=== PATIENT | female | born 1995 | race Caucasian/White ===

== ENCOUNTER → 2023-12-26 | Outpatient (CLI) | payer BC, SELFPAY ==
[2023-12-26 14:09] LABS: hCG Titer Quant., Serum 22718 mIU/mL (1-3)
[2023-12-30 07:07] LABS: Chlamydia By Nucleic Acid AMP Negative (Negative); Gonococcus By Nucleic Acid AMP Negative (Negative)
== END | disposition home or self-care (01) ==
PROVIDERS: Referring Provider Registered Nurse; Visit Provider Registered Nurse
DX: O20.0 Threatened abortion (principal); Z3A.00 Weeks of gestation of pregnancy not specified
CPT/HCPCS: 36415; 84702; 86850; 86900; 86901; 87086; 87491; 87591

== ENCOUNTER → 2023-12-28 | Outpatient (CLI) | payer BC, SELFPAY ==
--- OUTSIDE RECORDS SUMMARY | 2023-12-28 09:50 | XMS RPT_ITS | CCD ---
Author Name Unknown Address [address] [place] [address] Organization [facility] Care Team Providers Care Charm Filter Operator Helper Name Role Phone BradleyKendrick Unavailable Unavailable None, No PCP Unavailable Unavailable Abdi, Kellee Unavailable Unavailable None, No PCP Unavailable Unavailable Unavailable Unavailable MD FLORIAN RICE Referring Unava ilable MD FLORIAN RICE Attending Unava ilable Medications Completed/Discontinued Medications Medication Drug Class(es) Dates Sig (Normalized) Sig (Original) No Reported Medications (1 source) No Reported Medi cations Refills: 0 Active No Reported Medications (3 sources) No Reported Medi cations Quantity: 0 Refills: 0 Ordered: 04-Jan-2021 DO Active Problems Active Problems Problem Classification Problem Date Documented Da te Episodic/Chronic Menstrual disorders (4 sources) Dysmenorrhea; Translations: [Dysmenorrhea] Chronic Other screening for suspected conditions (not mental disorders or infectious disease) (7 sources) Cancer cervix - screening done; Translations: [Patient encounter status] Episodic Past or Other Problems Problem Classification Problem Date Documented Da te Episodic/Chronic Unclassified (2 sources) Patient encounter status; Translations: [Women's annual routine gynecological examination] Unclassified (1 source) Cancer cervix screening status; Translations: [Screening for cervical cancer] Unclassified (4 sources) Finding of menstrual bleeding; Translations: [Menstruation] Results Test Name Value Interpretation Reference Range Facil ity Vital Signs Date Time Vital Sign Value Performing Clinician Elena zapien 02-19-2023 11:24-0400 Body height 157.48 cm No PCP None [facility] [employer] Phone: 02-19-2023 11:24-0400 Body mass index (BMI) [Ratio] 31.71 kg/m2 No PCP None [facility] [place] Work Phone: 02-19-2023 11:24-0400 Body surface area Derived from formula 1.8 m2 No PCP None [facility] [place] Work Phone: 02-19-2023 11:24-0400 Body weight 78.65 kg No PCP None [facility] [place] Work Phone: 02-19-2023 11:24-0400 Diastolic blood pressure 72 mm[Hg] No PCP None [facility] Work Phone: 02-19-2023 11:24-0400 Systolic blood pressure 118 mm[Hg] No PCP None [facility] Work Phone: 01-31-2022 14:08-0400 Body height 157.48 cm No PCP None [facility] [place] Work Phone: 01-31-2022 14:08-0400 Body mass index (BMI) [Ratio] 30.73 kg/m2 No PCP None [facility] Work Phone: 01-31-2022 14:08-0400 Body surface area Derived from formula 1.77 m2 No PCP None [facility] Work Phone: 01-31-2022 14:08-0400 Body weight 76.2 kg No PCP None [facility] Work Phone: 01-31-2022 14:08-0400 Diastolic blood pressure 82 mm[Hg] No PCP None [facility] Work Phone: 01-31-2022 14:08-0400 Systolic blood pressure 126 mm[Hg] No PCP None [facility] Work Phone: 01-04-2021 16:54-0500 BMI (Body Mass Index) 30.48 kg/m2 Kendrick Huerta [facility] [address] [place] Work Phone: 01-04-2021 16:54-0500 Body Temperature 98.9 [degF] Kendrick Huerta [place] [address] [employer] Work Phone: Encounters Encounter Date Encounter Type Care Provider Facility Start: 02-19-2023 Periodic preventive med est patient 18-39 yrs No PCP None [place] [address] [employer] Work Phone: Start: 02-19-2023 ambulatory MD FLORIAN ENNIS [facility] Facility:[id number] Start: 02-12-2022 Chart Update No PCP None [place] [address] [employer] Phone: Start: 01-31-2022 Periodic preventive med est patient 18-39 yrs No PCP None [place] [address] [employer] Work Phone: Encounter for gynecological examination (general) (routine) without abnormal findings No PCP None [place] [address] [employer] Phone: Procedures Date Procedure Procedure Detail Performing Clinician History of No history of surgery Kendrick Huerta No history of surgery No PCP None Plan of Treatment Date Care Activity Detail Author Start: 02-06-2023 Patient encounter procedure ANNUAL, Provider: Kendrick Huerta, Status: Ton, Time: 8:30 AM [place] [address] [employer] Phone: Payers Date Payer Category Payer Unknown [id number] 1995 Unknown [id number] Unknown [facility] Social History Date Type Detail Facility Assertion Tobacco smoking consumption unknown (finding) [place] [address] [employer] Phone: No alcohol use No alcohol use [place] [address] [employer] Work Phone: Functional Status Date Assessment Result Facility NEGATED: Highlighted row Functional performance Functional status health issues are not documented Disease [place] [address] [employer] Work Phone: Mental Status Date Assessment Result Facility NEGATED: Highlighted row Cognitive function [Interpretation] Cognitive status health issues are not documented Disease [employer] Phone: History of Present illness Narrative Note Date & Type Note Facility History of Present illness Narrative 26-year-old presents for annual exam. Patient safe at home denies abuse. Patient sexually is not sexually active. Patient does physical activity and exercise. Patient is rare self exams no new lumps bumps masses. Patient not think about kids in the near future but may be down the line. 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 Patient uses condoms for contraception. She has no menstrual problems. She is up-to-date on her Pap smears. Patient has no concerns today [employer] Phone: Summary Purpose Family History No Family History Records Found Grandparent Name Dates Details Family history of cardiac ar rest(V17.49, Z82.49) Status:Active Family history of hypertensi on(V17.49, Z82.49) Status:Active Family history of pancreatic cancer(V16.0, Z80.0) Status:Active Mother Name Dates Details No pertinent family history( V49.89, Z78.9) Status:Active Father Name Dates Details No pertinent family history( V49.89, Z78.9) Status:Active Unknown Family Member Name Dates Details No pertinent family history: Mother, Father(V49.89, Z78.9) Status:Active Family history of cardiac ar rest: Grandparent(V17.49, Z82.49) Status:Active Family history of hypertensi on: Grandparent(V17.49, Z82.49) Status:Active Family history of pancreatic cancer: Grandparent(V16.0, Z80.0) Status:Active Unknown Family Member Name Dates Details No pertinent family history: Mother, Father(V49.89, Z78.9) Status:Active Family history of cardiac ar rest: Grandparent(V17.49, Z82.49) Status:Active Family history of hypertensi on: Grandparent(V17.49, Z82.49) Status:Active Family history of pancreatic cancer: Grandparent(V16.0, Z80.0) Status:Active Unknown Family Member Name Dates Details No pertinent family history: Mother, Father(V49.89, Z78.9) Status:Active Family history of cardiac ar rest: Grandparent(V17.49, Z82.49) Status:Active Family history of hypertensi on: Grandparent(V17.49, Z82.49) Status:Active Family history of pancreatic cancer: Grandparent(V16.0, Z80.0) Status:Active Advance Directives No Advanced Directives Records FoundNo Advanced Directives Records FoundNo Advanced Directives Records FoundNo Advanced Directives Records Found Chief Complaint Patient here today for yearly exam. Last pap-03/04/2019 NIL. Patient has no concerns. LMP: 2Patient here today for her annual with no concerns. Last pap 01/31/2022 NIL. Additional Source Comments INFORMATION SOURCE (unrecogn ized section and content) DATE CREATED AUTHOR AUTHOR'S ORGANIZ ATION 03/20/2019 [facility] DATE CREATED AUTHOR AUTHOR'S ORGANIZ ATION 02/20/2023 [facility] DATE CREATED AUTHOR AUTHOR'S ORGANIZ ATION 02/20/2023 [place] FOR RECORDS PERTAINING TO PATIENTS WHO ARE OR HAVE BEEN ENROLLED IN A CHEMICAL DEPENDENCY/SUBSTANCEABUSE PROGRAM, SOME INFORMATION MAY BE OMITTED. This clinical summary was aggregated from multiple sources. Caution should be exercised in using it in the provision of clinical care. This summary normalizes information from multiple sources, and as a consequence, information in this document may materially change the coding, format and clinical context of patient data. In addition, data may be omitted in some cases. CLINICAL DECISIONS SHOULD BE BASED ON THE PRIMARY CLINICAL RECORDS. [facility] [employer] provides no warranty or guarantee of the accuracy or completeness of information in this document.
[2023-12-28 11:17] LABS: hCG Titer Quant., Serum 20303 mIU/mL (1-3)
== END | disposition home or self-care (01) ==
LOC: LAB 09:30
PROVIDERS: Referring Provider Registered Nurse; Visit Provider Registered Nurse
DX: O20.0 Threatened abortion (principal); Z3A.00 Weeks of gestation of pregnancy not specified
CPT/HCPCS: 36415; 84702

== ENCOUNTER → 2024-01-01 | Outpatient (CLI) | payer BC, SELFPAY ==
[2024-01-01 16:51] LABS: hCG Titer Quant., Serum 1760 mIU/mL (1-3)
== END | disposition home or self-care (01) ==
LOC: LAB 15:24
PROVIDERS: Referring Provider Registered Nurse; Visit Provider Registered Nurse
DX: O20.0 Threatened abortion (principal); Z3A.00 Weeks of gestation of pregnancy not specified
CPT/HCPCS: 36415; 84702

== ENCOUNTER → 2024-01-04 | Outpatient (CLI) | payer BC, SELFPAY ==
--- OUTSIDE RECORDS SUMMARY | 2024-01-04 10:16 | XMS RPT_ITS | CCD ---
Author Name Unknown Address [address] [place] [address] Organization [facility] Care Team Providers Care Fulfillment Associate Name Role Phone BradleyKendrick Unavailable Unavailable None, [...] height 157.48 cm No PCP None [facility] [employer] Phone: 02-19-2023 11:24-0400 Body mass index (BMI) [Ratio] 31.71 kg/m2 No PCP None [facility] [place] Work Phone: 02-19-2023 11:24-0400 Body surface area Derived from formula 1.8 m2 No PCP None [facility] Work Phone: 02-19-2023 11:24-0400 Body weight 78.65 kg No PCP None [facility] dennis [facility] Work Phone: 02-19-2023 11:24-0400 Diastolic blood pressure 72 mm[Hg] No PCP None [facility] [employer] Work Phone: 02-19-2023 11:24-0400 Systolic blood pressure 118 mm[Hg] No PCP None [facility] [employer] Work Phone: 01-31-2022 14:08-0400 Body height 157.48 cm No PCP None [facility] [facility] [place] Work Phone: 01-31-2022 14:08-0400 Body mass index (BMI) [Ratio] 30.73 kg/m2 No PCP None [facility] [employer] [place] Work Phone: 01-31-2022 14:08-0400 Body surface area Derived from formula 1.77 m2 No PCP None [employer] Work Phone: 01-31-2022 14:08-0400 Body weight 76.2 kg No PCP None [facility] [employer] Work Phone: 01-31-2022 14:08-0400 Diastolic blood pressure 82 mm[Hg] No PCP None [facility] [employer] Work Phone: 01-31-2022 14:08-0400 Systolic blood pressure 126 mm[Hg] No PCP None [facility] [employer] [place] Work Phone: 01-04-2021 16:54-0500 BMI (Body Mass Index) 30.48 kg/m2 Kendrick Huerta [facility] [place] [address] [place] Work Phone: 01-04-2021 16:54-0500 Body Temperature 98.9 [degF] Kendrick Huerta [place] [address] [employer] Work Phone: Encounters Encounter Date Encounter Type Care Provider Facility Start: 02-19-2023 Periodic preventive med est patient 18-39 yrs No PCP None [place] [address] [employer] Work Phone: Start: 02-19-2023 ambulatory MD FLORIAN ENNIS [facility] Facility:[id number] Start: 02-12-2022 Chart Update No PCP None [place] [address] Phone: Start: 01-31-2022 Periodic preventive med est patient 18-39 yrs No PCP None [place] [address] [employer] Work Phone: Encounter for gynecological examination (general) (routine) without abnormal findings No PCP None [place] [address] Phone: Procedures Date Procedure Procedure Detail Performing Clinician History of No history of surgery Kendrick Huerta No history of surgery No PCP None Plan of Treatment Date Care Activity Detail Author Start: 02-06-2023 Patient encounter procedure ANNUAL, Provider: Kendrick Huerta, Status: Ton, Time: 8:30 AM [place] [address] Phone: Payers Date Payer Category Payer Unknown [id number] 1995 Unknown [id number] Unknown [facility] Social History Date Type Detail Facility Assertion Tobacco smoking consumption unknown (finding) [place] [address] Phone: No alcohol use No alcohol use [place] [address] [employer] Work Phone: Functional Status Date Assessment Result Facility NEGATED: Highlighted row Functional performance Functional status health issues are not documented Disease [place] [address] [employer] Work Phone: Mental Status Date Assessment Result Facility NEGATED: Highlighted row Cognitive function [Interpretation] Cognitive status health issues are not documented Disease [employer] Phone: History of Present illness Narrative Note [...] line. 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 Patient uses condoms for contraception. She has no menstrual problems. She is up-to-date on her Pap smears. Patient has no concerns today [employer] Phone: Summary Purpose Family History No Family [...] DATE CREATED AUTHOR AUTHOR'S ORGANIZ ATION 03/20/2019 [facility] DATE CREATED AUTHOR AUTHOR'S ORGANIZ ATION 02/20/2023 [facility] DATE CREATED AUTHOR AUTHOR'S ORGANIZ ATION 02/20/2023 [place] FOR RECORDS PERTAINING TO PATIENTS WHO ARE [...] BE BASED ON THE PRIMARY CLINICAL RECORDS. [facility] [employer] provides no warranty or guarantee of the accuracy or completeness of information in this document.
[2024-01-04 11:22] LABS: hCG Titer Quant., Serum 362 mIU/mL (1-3)
== END | disposition home or self-care (01) ==
LOC: LAB 10:12
PROVIDERS: Referring Provider Registered Nurse; Visit Provider Registered Nurse
DX: O20.0 Threatened abortion (principal); Z3A.00 Weeks of gestation of pregnancy not specified
CPT/HCPCS: 36415; 84702

== ENCOUNTER → 2024-01-07 | Outpatient (CLI) | payer BC, SELFPAY ==
[2024-01-07 17:43] LABS: hCG Titer Quant., Serum 105 mIU/mL (1-3)
--- OUTSIDE RECORDS SUMMARY | 2024-01-07 21:17 | XMS RPT_ITS | CCD ---
Author Name Unknown Address [address] [place] [address] Organization [facility] Care Team Providers Care Merchandise Distributor Name Role Phone BradleyKendrick Unavailable Unavailable None, [...] height 157.48 cm No PCP None [facility] [employer] Phone: 02-19-2023 11:24-0400 Body mass index (BMI) [Ratio] 31.71 kg/m2 No PCP None [facility] [facility]ay [place] Work Phone: 02-19-2023 11:24-0400 Body surface area Derived from formula 1.8 m2 No PCP None [facility] [employer] Work Phone: 02-19-2023 11:24-0400 Body weight 78.65 kg No PCP None [facility] dennis [employer] Work Phone: 02-19-2023 11:24-0400 Diastolic blood pressure 72 mm[Hg] No PCP None [facility] [employer] Work Phone: 02-19-2023 11:24-0400 Systolic blood pressure 118 mm[Hg] No PCP None [facility] [employer] Work Phone: 01-31-2022 14:08-0400 Body height 157.48 cm No PCP None [facility] [employer] Work Phone: 01-31-2022 14:08-0400 Body mass index (BMI) [Ratio] 30.73 kg/m2 No PCP None [facility] [employer] Work Phone: 01-31-2022 14:08-0400 Body surface area Derived from formula 1.77 m2 No PCP None [facility] [place] [employer] Work Phone: 01-31-2022 14:08-0400 Body weight 76.2 kg No PCP None [facility] [employer] Work Phone: 01-31-2022 14:08-0400 Diastolic blood pressure 82 mm[Hg] No PCP None [facility] [employer] Work Phone: 01-31-2022 14:08-0400 Systolic blood pressure 126 mm[Hg] No PCP None [facility] [employer] Work Phone: 01-04-2021 16:54-0500 BMI (Body Mass Index) 30.48 kg/m2 Kendrick Huerta [facility] [place] [address] [place] Work Phone: 01-04-2021 16:54-0500 Body Temperature 98.9 [degF] Kendrick Huerta [place] [address] [employer] Work Phone: Encounters Encounter Date Encounter Type Care Provider Facility Start: 02-19-2023 Periodic preventive med est patient 18-39 yrs No PCP None [place] [address] [employer] Work Phone: Start: 02-19-2023 ambulatory MD FLORIAN ENNIS [facility] Facility:[id number] Start: 02-12-2022 Chart Update No PCP None [place] [address] [employer] Phone: Start: 01-31-2022 Periodic preventive med est patient 18-39 yrs No PCP None [place] [address] [employer] Work Phone: Encounter for gynecological examination (general) (routine) without abnormal findings No PCP None [place] [address] [employer] Phone: Procedures Date Procedure Procedure Detail Performing Clinician History of No history of surgery Kendrick Huerta No history of surgery No PCP None Plan of Treatment Date Care Activity Detail Author Start: 02-06-2023 Patient encounter procedure ANNUAL, Provider: Kendrick Huerta, Status: Ton, Time: 8:30 AM [place] [address] [employer] Phone: Payers Date Payer Category Payer Unknown [id number] 1995 Unknown [id number] Unknown [facility] Social History Date Type Detail Facility Assertion Tobacco smoking consumption unknown (finding) [place] [address] [employer] Phone: No alcohol use No alcohol use [place] [address] [employer] Work Phone: Functional Status Date Assessment Result Facility NEGATED: Highlighted row Functional performance Functional status health issues are not documented Disease [place] [address] [employer] Work Phone: Mental Status Date Assessment Result Facility NEGATED: Highlighted row Cognitive function [Interpretation] Cognitive status health issues are not documented Disease [employer] Phone: History of Present illness Narrative Note [...] line. 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 Patient uses condoms for contraception. She has no menstrual problems. She is up-to-date on her Pap smears. Patient has no concerns today [employer] Phone: Summary Purpose Family History No Family [...] DATE CREATED AUTHOR AUTHOR'S ORGANIZ ATION 03/20/2019 [facility] DATE CREATED AUTHOR AUTHOR'S ORGANIZ ATION 02/20/2023 [facility] DATE CREATED AUTHOR AUTHOR'S ORGANIZ ATION 02/20/2023 [place] FOR RECORDS PERTAINING TO PATIENTS WHO ARE [...] BE BASED ON THE PRIMARY CLINICAL RECORDS. [facility] [employer] provides no warranty or guarantee of the accuracy or completeness of information in this document.
== END | disposition home or self-care (01) ==
LOC: LAB 16:19
PROVIDERS: Referring Provider Registered Nurse; Visit Provider Registered Nurse
DX: O20.0 Threatened abortion (principal); Z3A.00 Weeks of gestation of pregnancy not specified
CPT/HCPCS: 36415; 84702

== ENCOUNTER → 2024-01-09 | Outpatient (CLI) | payer BC, SELFPAY ==
--- OUTSIDE RECORDS SUMMARY | 2024-01-09 10:38 | XMS RPT_ITS | CCD ---
Author Name Unknown Address [address] [place] [address] Organization [facility] Care Team Providers Care Quality Supervisor Name Role Phone BradleyKendrick Unavailable Unavailable None, [...] height 157.48 cm No PCP None [facility] [employer] Phone: 02-19-2023 11:24-0400 Body mass index (BMI) [Ratio] 31.71 kg/m2 No PCP None [facility] [facility]ay [place] Work Phone: 02-19-2023 11:24-0400 Body surface area Derived from formula 1.8 m2 No PCP None [facility] [employer] Work Phone: 02-19-2023 11:24-0400 Body weight 78.65 kg No PCP None [facility] dennis [employer] Work Phone: 02-19-2023 11:24-0400 Diastolic blood pressure 72 mm[Hg] No PCP None [facility] [employer] Work Phone: 02-19-2023 11:24-0400 Systolic blood pressure 118 mm[Hg] No PCP None [facility] [employer] Work Phone: 01-31-2022 14:08-0400 Body height 157.48 cm No PCP None [facility] [employer] Work Phone: 01-31-2022 14:08-0400 Body mass index (BMI) [Ratio] 30.73 kg/m2 No PCP None [facility] [employer] Work Phone: 01-31-2022 14:08-0400 Body surface area Derived from formula 1.77 m2 No PCP None [facility] [employer] Work Phone: 01-31-2022 14:08-0400 Body weight 76.2 kg No PCP None [facility] [employer] Work Phone: 01-31-2022 14:08-0400 Diastolic blood pressure 82 mm[Hg] No PCP None [facility] [employer] Work Phone: 01-31-2022 14:08-0400 Systolic blood pressure 126 mm[Hg] No PCP None [facility] [employer] Work Phone: 01-04-2021 16:54-0500 BMI (Body Mass Index) 30.48 kg/m2 Kendrick Huerta [facility] [place] [address] [employer] Work Phone: 01-04-2021 16:54-0500 Body Temperature 98.9 [degF] Kendrick Huerta [place] [address] [employer] Work Phone: Encounters Encounter Date Encounter Type Care Provider Facility Start: 02-19-2023 Periodic preventive med est patient 18-39 yrs No PCP None [place] [address] [employer] Work Phone: Start: 02-19-2023 ambulatory MD FLORIAN ENNIS [facility] Facility:9784 Start: 02-12-2022 Chart Update No PCP None [place] [address] [employer] Phone: Start: 01-31-2022 Periodic preventive med est patient 18-39 yrs No PCP None [place] [address] [employer] Work Phone: Encounter for gynecological examination (general) (routine) without abnormal findings No PCP None [place] [address] [employer] Phone: Procedures Date Procedure Procedure Detail Performing Clinician History of No history of surgery Kendrick Huerta No history of surgery No PCP None Plan of Treatment Date Care Activity Detail Author Start: 02-06-2023 Patient encounter procedure ANNUAL, Provider: Kendrick Huerta, Status: Ton, Time: 8:30 AM [place] [address] [employer] Phone: Payers Date Payer Category Payer Unknown [id number] 1995 Unknown [id number] Unknown [facility] Social History Date Type Detail Facility Assertion Tobacco smoking consumption unknown (finding) [place] [address] [employer] Phone: No alcohol use No alcohol use [place] [address] [employer] Work Phone: Functional Status Date Assessment Result Facility NEGATED: Highlighted row Functional performance Functional status health issues are not documented Disease [place] [address] [employer] Work Phone: Mental Status Date Assessment Result Facility NEGATED: Highlighted row Cognitive function [Interpretation] Cognitive status health issues are not documented Disease [employer] Phone: History of Present illness Narrative Note [...] line. 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 Patient uses condoms for contraception. She has no menstrual problems. She is up-to-date on her Pap smears. Patient has no concerns today [employer] Phone: Summary Purpose Family History No Family [...] DATE CREATED AUTHOR AUTHOR'S ORGANIZ ATION 03/20/2019 [facility] DATE CREATED AUTHOR AUTHOR'S ORGANIZ ATION 02/20/2023 [facility] DATE CREATED AUTHOR AUTHOR'S ORGANIZ ATION 02/20/2023 [employer] FOR RECORDS PERTAINING TO PATIENTS WHO ARE [...] BE BASED ON THE PRIMARY CLINICAL RECORDS. [facility] [employer]. provides no warranty or guarantee of the accuracy or completeness of information in this document.
[2024-01-09 10:45] LABS: hCG Titer Quant., Serum 57 mIU/mL (1-3)
== END | disposition home or self-care (01) ==
LOC: LAB 09:28
PROVIDERS: Referring Provider Registered Nurse; Visit Provider Registered Nurse
DX: O20.0 Threatened abortion (principal); Z3A.00 Weeks of gestation of pregnancy not specified
CPT/HCPCS: 36415; 84702

== ENCOUNTER → 2024-03-14 | Outpatient (CLI) | payer BC, SELFPAY ==
[2024-03-14 15:02] LABS: hCG Titer Quant., Serum 13192 mIU/mL (1-3)
== END | disposition home or self-care (01) ==
LOC: LAB 13:39
PROVIDERS: Referring Provider Obstetrics & Gynecology; Visit Provider Obstetrics & Gynecology
DX: N91.2 Amenorrhea, unspecified (principal)
CPT/HCPCS: 36415; 84702

== ENCOUNTER → 2024-03-16 | Outpatient (CLI) | payer BC, SELFPAY ==
[2024-03-16 14:28] LABS: hCG Titer Quant., Serum 19462 mIU/mL (1-3)
== END | disposition home or self-care (01) ==
LOC: LAB 12:55
PROVIDERS: Visit Provider Obstetrics & Gynecology
DX: N91.2 Amenorrhea, unspecified (principal)
CPT/HCPCS: 36415; 84702

== ENCOUNTER → 2024-03-28 | Outpatient (CLI) | payer BC, SELFPAY ==
[2024-03-31 21:07] LABS: Chlamydia By Nucleic Acid AMP Negative (Negative); Gonococcus By Nucleic Acid AMP Negative (Negative)
== END | disposition home or self-care (01) ==
LOC: LABSPEC 16:59
PROVIDERS: Referring Provider Obstetrics & Gynecology; Visit Provider Obstetrics & Gynecology
DX: Z34.90 Encounter for supervision of normal pregnancy, unspecified, unspecified trimester (principal)
CPT/HCPCS: 87086; 87491; 87591

== ENCOUNTER → 2024-04-14 | Outpatient (CLI) | payer BC, SELFPAY ==
[2024-04-14 10:13] LABS: Absolute Lymphocyte Count 2.04 X10^3/uL (0.83-4.51); Absolute Neutrophil Count 7.1 X10^3/uL (2.0-7.7); Basophil# 0.02 X10^3/uL; Basophil% 0.2 % (0-1); Eosinophil# 0.04 X10^3/uL; Eosinophils% 0.4 % (0-5); Hematocrit 44.4 % (37-47); Hemoglobin 14.9 g/dL (12.0-15.0); Lymphocyte # 2.04 X10^3/ul (0.83-4.51); Lymphocyte % 21.5 % (19-41); Mean Corp Hgb Conc 33.6 g/dL (32-36); Mean Corpuscular Hgb 29.3 pg (27.0-32.0); Mean Corpuscular Volume 87.2 fL (81-99); Mean Platelet Vol. 9.6 fl (6.2-12.0); Monocyte% 3.2 % (0-10); NRBC Flagged by Analyzer 0 % (0-5); Neutrophil # 7.06 X10^3/uL (2.7-7.7); Neutrophil % 74.4 % (47-70); Platelet Count 309 K/mm3 (150-450); RBC Distribution Width CV 12.3 % (11.6-14.6); RBC Distribution Width SD 39.3 fl (35.1-43.9); Red Blood Count 5.09 M/mm3 (4.2-5.4); White Blood Count 9.5 K/mm3 (4.4-11.0)
[2024-04-14 11:16] LABS: HIV - WCH Non-Reactive (Nonreactive); Hepatitis B Surface Antigen Non-Reactive (Nonreactive); Hepatitis C Antibody Non-Reactive (Nonreactive); Rubella IgG Reactive (Nonreactive); Syphilis Antibodies Non-reactive
== END | disposition home or self-care (01) ==
LOC: OLS.ABSOLU 09:00
PROVIDERS: Referring Provider Obstetrics & Gynecology; Visit Provider Obstetrics & Gynecology
DX: Z34.01 Encounter for supervision of normal first pregnancy, first trimester (principal); Z31.430 Encounter of female for testing for genetic disease carrier status for procreative management
CPT/HCPCS: 36415; 83036; 85025; 86703; 86762; 86780; 86803; 86850; 86900; 86901; 87340

== ENCOUNTER → 2024-08-11 | Outpatient (CLI) | payer BC, SELFPAY ==
[2024-08-11 09:00] LABS: Absolute Lymphocyte Count 2.25 X10^3/uL (0.83-4.51); Absolute Neutrophil Count 8.8 X10^3/uL (2.0-7.7); Basophil# 0.03 X10^3/uL; Basophil% 0.3 % (0-1); Eosinophil# 0.09 X10^3/uL; Eosinophils% 0.8 % (0-5); Hematocrit 37.3 % (37-47); Hemoglobin 12.2 g/dL (12.0-15.0); Lymphocyte # 2.25 X10^3/ul (0.83-4.51); Lymphocyte % 19.1 % (19-41); Mean Corp Hgb Conc 32.7 g/dL (32-36); Mean Corpuscular Volume 88.8 fL (81-99); Mean Platelet Vol. 9.5 fl (6.2-12.0); Monocyte# 0.53 X10^3/uL; Monocyte% 4.5 % (0-10); NRBC Flagged by Analyzer 0 % (0-5); Neutrophil # 8.81 X10^3/uL (2.7-7.7); Neutrophil % 74.6 % (47-70); Platelet Count 309 K/mm3 (150-450); RBC Distribution Width SD 42.4 fl (35.1-43.9); White Blood Count 11.8 K/mm3 (4.4-11.0)
[2024-08-11 10:02] LABS: Glucose Challenge Gest 1H 50g 135 mg/dL (70-140)
[2024-08-20 11:09] LABS: HIV 1/0/2 SCREEN Non Reactive (Non Reactive); Syphilis Antibodies Non Reactive (Non Reactive)
== END | disposition home or self-care (01) ==
LOC: LAB 08:12
PROVIDERS: Referring Provider Obstetrics & Gynecology; Visit Provider Obstetrics & Gynecology
DX: O09.92 Supervision of high risk pregnancy, unspecified, second trimester (principal); Z13.1 Encounter for screening for diabetes mellitus; Z3A.00 Weeks of gestation of pregnancy not specified
CPT/HCPCS: 36415; 82950; 85025; 86703; 86780

== ENCOUNTER → 2024-08-14 | Outpatient (CLI) | payer BC, SELFPAY ==
[2024-08-14 07:51] LABS: Glucose GTT-Gestation. Fasting 88 mg/dL (<105)
[2024-08-14 09:07] LABS: Glucose GTT-Gestational 1 Hr 202 mg/dL (<190)
[2024-08-14 09:23] LABS: Glucose GTT-Gestational 2 Hr 140 mg/dL (<165)
[2024-08-14 10:25] LABS: Glucose GTT-Gestational 3 Hr 139 L (<145)
== END | disposition home or self-care (01) ==
LOC: LAB 06:48
PROVIDERS: Referring Provider Obstetrics & Gynecology; Visit Provider Obstetrics & Gynecology
DX: Z13.1 Encounter for screening for diabetes mellitus (principal)
CPT/HCPCS: 36415; 82951; 82952

== ENCOUNTER 2024-10-17 16:35 | Inpatient (IN) | payer BC, SELFPAY ==
[2024-10-17] VITALS (14 sets, daily range): BP systolic 131–177; BP diastolic 77–97; PULSE 78–103; RESP 15–19; TEMP 36.1–37.1; O2SAT 97–98; BMI 41.8
[2024-10-17 16:15] LABS: Hematocrit 38.4 % (37-47); Hemoglobin 13.6 g/dL (12.0-15.0); Mean Corp Hgb Conc 35.4 g/dL (32-36); Mean Corpuscular Hgb 29.9 pg (27.0-32.0); Mean Corpuscular Volume 84.4 fL (81-99); Mean Platelet Vol. 10.5 fl (6.2-12.0); Platelet Count 240 K/mm3 (150-450); RBC Distribution Width CV 13.3 % (11.6-14.6); Red Blood Count 4.55 M/mm3 (4.2-5.4); White Blood Count 12.1 K/mm3 (4.4-11.0)
[2024-10-17 16:24] LABS: Protein, Urine (Random) 20.1 mg/dL (<11.9); Protein:Creat Ratio 948 mg/g CRE (0-200)
[2024-10-17 16:28] LABS: AST(SGOT) 22 U/L (15-37); Alanine Aminotransfer ALT/SGPT 29 U/L (13-56); Creatinine, Serum 0.65 mg/dL (0.55-1.02); EST Glomerular Filtration Rate 116 mL/min (>60); Est Glom Filt Rate - Afr Amer 141 mL/min (>60); Estimated Creatinine Clearance 146.97 ml/min; Uric Acid 4.9 mg/dL (2.6-6.0)
--- NOTE | 2024-10-17 16:29 | HP.PCM.OB_ITS ---
HPI - General General Date of Admission: 10/17/24 HPI Narrative PHYLLIS LEBRON, is a 29 F who presents with preeclampsia. no vb lof good fm n girish ctx Maternal Data Information KISHORE Calculator Estimated Delivery Date Method Current WG Current Estimate 11/06/24 LMP (Certain) 37w 1d PFSH PFSH Medical History Complete Home Medications ?Medication ?Instructions ?Recorded ?Last Taken ?Type multivit-min no.71-iron fum 28 cap PO 03/18/24 Unknown History mg-folate no.1 1 mg-dha 300 mg capsule (PNV-[place]) ondansetron 4 mg disintegrating 4 mg PO Q6H PRN nausea and 03/28/24 Unknown Rx tablet vomiting #30 tabs Allergy/AdvReac Type Severity Reaction Status Date / Time No Known Allergies Allergy Verified 10/17/24 15:02 Family History Grandmother Cancer Paternal Surgical History [place] teeth extracted Social History adopted: No household members: spouse current occupational status: employed 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 current occupational exposures/hazards: No pets and animals: Yes (Avoid litterbox) pets and animals: cat(s) and dog(s) history of recent travel: No sexually active: Yes Smoking Status: Never smoker alcohol intake: current alcohol intake frequency: holidays/special occasions only details: not while substance use type: does not use well-balanced diet: daily or most days caffeine: Yes Type: carbonated beverages Number of servings: 1 eating out: 1-3 times/week during the past year weight has: remained stable what type of physical activity do you participate in: other details: crossfit frequency: 3-4 times per week duration: 45-60 minutes/day isaac/samaritan: [employer] seatbelt use: always do you feel safe at home: Yes additional social history: Gonzalo bertrand History 2 Elective abortions Hx Para 0 Spontaneous abortions 1 Hx # Term Pregnancies Ectopic pregnancies Hx # Pregnancies Multiple births # of living children 0 Past Pregnancies Del. Date Name GA/Weeks Outcome Route Bth Weight Gen Labor Lgth Anesthesia Del Christopher Provider FOB 12/27/23 spontaneous Visit Details Expected Delivery Route/Plan Labor Preferences- CB/BF classes: declined labor support person: ovi, mom- owen labor intervention preferences: minimal intervention pain management options preferred: open to epidural cut cord/dad catch:yes : yes, pumping PP control planned: [] discussed possible routes of delivery and associated risks: [] special requests: [] Plans Covid status: [] Flu vaccine:declined Tdap vaccine: done Rhogam: [na LARC form signed: declined movement and labor precautions reviewed. Problem list reviewed and updated with the most current plan of care details and appropriate orders placed. Relevant counseling for the gestational age provided. Continue routine care and follow up unless otherwise noted in visit notes/problem list details OB Flowsheet Initial Weight: Not Recorded Date -?-?-?-?-?-?-?-?-?-?-?-?- EGA Weight BP Urine Prot -?-?-?-?-?-?-?-?-?-?-?-?- Glucose FHR FuHt Pres Dilation -?-?-?-?-?-?-?-?-?-?-?-?- Effaced St Visit Note 03/28/24 -?-?-?-?-?-?--?-?-?-?-?-?- 8w 1d 190 lb 118/84 -?-?-?-?-?-?-?-?-?-?-?-?- 169 -?-?-?-?-?-?-?-?-?-?-?-?- KW-CRL cons with dates. accepts NIPT/carrier 04/24/24 -?-?-?-?-?-?-?-?-?-?-?-?- 12w 0d 195 lb 4 oz 118/76 Nega tive -?-?-?-?-?-?-?-?-?-?-?-?- Negative 163 -?-?-?-?-?-?-?-?-?-?-?-?- MH-No VB, Nausea manageable. Brief US confirm live IUP. Normal PN labs, LR NIPT. Declines AFP. MFM US ordered 05/20/24 -?-?-?-?-?-?-?-?-?-?-?-?- 15w 5d 200 lb 6 oz 116/80 Nega tive -?-?-?-?-?-?-?-?-?-?-?-?- Negative 157 -?-?-?-?-?-?-?-?-?-?-?-?- MH-No VB. Nause a improving. Denies concerns 06/18/24 -?-?-?-?-?-?-?-?-?-?-?-?- 19w 6d 208 lb 8 oz 125/80 Nega tive -?-?-?-?-?-?-?-?-?-?-?-?- Negative 155 -?-?-?-?-?-?-?-?-?-?-?-?- JV- normal anato my report reviewed with patient. no lof, vaginal bleeding, or cramping. no complaints. 07/16/24 -?-?-?-?-?-?-?-?-?-?-?-?- 23w 6d 214 lb 127/83 Negative -?-?-?-?-?-?--?-?-?-?-?-?- Negative 150 24 -?-?-?-?-?-?-?-?-?-?-?-?- SM- no vb lof go od fm no regular ctx 08/11/24 -?-?-?-?-?-?-?-?-?-?-?-?- 27w 4d 215 lb 126/77 Negative -?-?-?-?-?-?-?-?-?-?-?-?- Negative 140 28 -?-?-?-?-?-?-?-?-?-?-?-?- KW- no vb/lof/ct x. good fm. labs done today. tdap given. LARC done. declined flu 08/26/24 -?-?-?-?-?-?-?-?-?-?-?-?- 29w 5d 219 lb 126/85 Negative -?-?-?-?-?-?-?-?-?-?-?-?- Negative 145 30 -?-?--?-?-?-?-?-?-?-?-?-?- SM- no vb lof go od fm no reuglar ctx 09/09/24 -?-?-?-?-?-?-?-?-?-?-?-?- 31w 5d 219 lb 128/74 Negative -?-?-?-?-?-?-?-?-?-?-?-?- Negative 150 33 -?-?-?-?-?-?-?-?-?-?-?-?- MH-No VB, LOF Good Fm. Denies concerns 09/22/24 -?-?-?-?-?-?-?-?-?-?-?-?- 33w 4d 223 lb 134/80 Negative -?-?-?-?-?-?-?-?-?-?-?-?- Negative 155 34 -?-?-?-?-?-?-?-?-?-?-?-?- KW- no vb/lof/re gular ctx. good fm. 10/07/24 -?-?-?-?-?-?-?-?-?-?--?-?- 35w 5d 228 lb 6 oz 135/85 Nega tive -?-?-?-?-?-?-?-?-?-?-?-?- Negative 160 37 Cephalic -?-?-?-?-?-?-?-?-?-?-?-?- SM- no vb lof go od fm no regular ctx 10/17/24 -?-?-?-?-?-?-?-?-?-?-?-?- 37w 1d 230 lb 145/82 Trace -?-?-?-?-?-?-?-?-?-?-?-?- Negative 154 38 0 -?-?-?-?-?--?-?-?-?-?-?-?- LC- no vb/ctx/lo f. good fm. denies quach/visual changes/ruq pain. to WP for PEC labs for elevated BPs NST FHR Rate Baby A Baseline: 130 Variability:: Moderate Accelerations:: 15 x 15 Decelerations:: None NST Reactive:: Yes FHR Category:: Category I Uterine Activity:: irregular ROS Constitutional Constitutional: Reports systems reviewed and no addt'l complaints, except as documented Eyes Eyes: Denies change in vision ENT HEENT: Reports systems reviewed and no addt'l complaints, except as documented; Denies headache(s) Cardiovascular Cardiovascular: Reports systems reviewed and no addt'l complaints, except as documented; Denies chest pain or dyspnea Respiratory/Chest Respiratory/Chest: Reports systems reviewed and no addt'l complaints, except as documented Gastrointestinal Gastrointestinal: Reports systems reviewed and no addt'l complaints, except as documented; Denies abdominal pain Genitourinary Genitourinary: Reports systems reviewed and no addt'l complaints, except as documented, contractions Details: present (irregular) and movement Details: present; Denies dysuria or genital lesions Musculoskeletal Musculoskeletal: Reports systems reviewed and no addt'l complaints, except as documented Neurologic Neurologic: Reports systems reviewed and no addt'l complaints, except as documented Endocrine Endocrinology: Reports systems reviewed and no addt'l complaints, except as documented Vital Signs Vital Signs Vital Signs: 10/17/24 16:13 10/17/24 16:13 10/17/24 16:23 Pulse Rate 92 Blood Pressure 144/91 H 142/88 H BP Systolic 144 142 BP Diastolic 91 88 10/17/24 16:23 Pulse Rate 88 Blood Pressure BP Systolic BP Diastolic Weight Weight: 229 lb Body Mass Index (BMI) 41.8 Physical Exam Const alert, oriented x3, no apparent distress and healthy appearing HEENT normocephalic and moist oral mucous membranes Head and Scalp: atraumatic Neck full ROM, no lymphadenopathy, supple and thyroid normal General: trachea midline Lymph Lymphatic: no lymphadenopathy noted Chest inspection of chest normal Resp normal respiratory effort Cardio regular rate GI soft to palpation and non-tender GI Narrative: gravid Inspection: gravid external exam normal Manual OB Exam: estimated gestational size appropriate, presentation cephalic, dilated, effaced and station Extremity normal to inspection General Extremity: Negative for edema Skin no rashes or lesions noted Neuro no focal motor deficits and deep tendon reflexes 2+ bilaterally Motor Exam: strength 5/5 throughout and clonus absent Psych mental status grossly normal Labs Labs Labs: Blood Type O POSITIVE Antibody Screen NEGATIVE Hct 38.4 % (37-47) Hgb 13.6 g/dL (12.0-15.0) Pap Smear Negative Syphilis Total Ab Non Reactive (Non Reactive) Rubella IgG Antibody Reactive (Nonreactive) Hep Bs Antigen Non-Reactive (Nonreactive) Hepatitis C Antibody Non-Reactive (Nonreactive) Chlamydia DNA (ILEANA) Negative (Negative) N.gonorrhoeae DNA (LIEANA) Negative (Negative) HIV 1&2 Antibody Non Reactive (Non Reactive) Glucose 1 Hr 50 gm 135 mg/dL (70-140) Gest Glucose Tolerance MG/DL Assessment & Plan (1) Pre-eclampsia during in third trimester, antepartum: (2) : QUALIFIERS: Weeks of gestation: 37 weeks Qualified Code(s): Z 3A.37 - 37 weeks gestation of COMMENT: LR NIPT. Carrier testing neg. , Declines AFP. nl anatomy (3) Supervision of high-risk : QUALIFIERS: Trimester: third trimester Qualified Code(s): O09.93 - Supervision of high risk , unspecified, third trimester COMMENT: PRR, , KISHORE 11/06/24, surprise Ovi (4) Obesity affecting : QUALIFIERS: Trimester: third trimester Obesity type affecting : unspecified obesity Qualified Code(s): O99.213 - Obesity complicating , third trimester COMMENT: BMI 34 nl HgA1C encouraged healthy weight gain (5) Abnormal glucose affecting : COMMENT: 3 HR GTT - passed 1 value abnormal, healthy diet PLAN: Plan admit for IOL with cytotec
[2024-10-17] MEDS: 0.9% Saline Lock 10 ML Syringe IV (17:15)
[2024-10-17] MEDS: miSOPROStol 25 MCG TABLET VAGINAL (18:49)
[2024-10-17 18:55] LABS: Syphilis Antibodies Non-reactive
[2024-10-17] MEDS: LACTATED RINGERS 500 ML 999 ML IV (23:37)
[2024-10-18] VITALS (85 sets, daily range): BP systolic 107–193; BP diastolic 50–102; PULSE 67–110; RESP 14–20; TEMP 36.5–37; O2SAT 80–100
[2024-10-18] MEDS: miSOPROStol 25 MCG TABLET VAGINAL ×2 (00:11→05:22)
[2024-10-18] MEDS: LACTATED RINGERS 500 ML 999 ML IV ×2 (03:23→20:34)
[2024-10-18] MEDS: Lactated Ringers 1,000 ML 50 ML IV (08:19)
[2024-10-18] MEDS: 0.9% Normal Saline Single 100 ML IV.SOLN. INTRA-UTER (08:19)
[2024-10-18] MEDS: Oxytocin 15 Units/NS 250ml 15 UNITS/250 ML IV.SOLN 2 UNITS IV (10:06)
--- NOTE | 2024-10-18 10:38 | PCM.PN.BLA ---
Progress Note cat I tracing, BPS stable, fb and pit started. 1-2 60 -2. continue exp management
[2024-10-18] MEDS: Ondansetron 4 MG/2 ML Vial IV ×2 (10:57→16:40)
[2024-10-18] MEDS: Lactated Ringers 1,000 ML 150 ML IV (16:43)
[2024-10-18] MEDS: Magnesium Sulfate 4gm/100mL 4 GM/100 ML IV.SOLN. IV (18:05)
[2024-10-18] MEDS: Magnesium Sulfate 20 GM/500 ML BAG IV (18:31)
[2024-10-18] MEDS: Labetalol 100 MG Tablet PO (18:31)
[2024-10-18] MEDS: fentaNYL-bupivacaine (epidural) 100 ML BAG EPIDURAL (21:25)
[2024-10-19] VITALS (99 sets, daily range): BP systolic 109–150; BP diastolic 51–98; PULSE 81–128; RESP 15–20; TEMP 36.3–38.3; O2SAT 82–100
--- NOTE | 2024-10-19 03:11 | PCM.PN.BLA ---
Progress Note 9 cm cervix still on left side, cat I tracing, LEIGHTON position. closed knee position and pit at 14 mU. continue exp management. bps WNL. reviewed risk factor based GBS treatment
[2024-10-19] MEDS: fentaNYL-bupivacaine (epidural) 100 ML BAG EPIDURAL (03:32)
[2024-10-19] MEDS: 0.9% Saline Lock 10 ML Syringe IV ×3 (03:32→19:45)
[2024-10-19] MEDS: Magnesium Sulfate 20 GM/500 ML BAG IV ×3 (03:33→23:07)
--- NOTE | 2024-10-19 05:44 | PCM.PN.BLA ---
Progress Note now complete and pushing effectively, continue exp management and pit per protocol.
[2024-10-19] MEDS: Labetalol 100 MG Tablet PO (06:48)
--- NOTE | 2024-10-19 07:59 | OB.VAGDELI_ITS ---
Assessment & Plan (1) Pre-eclampsia during in third trimester, antepartum: (2) Abnormal glucose affecting : COMMENT: 3 HR GTT - passed 1 value abnormal, healthy diet (3) Obesity affecting : QUALIFIERS: Trimester: third trimester Obesity type affecting : unspecified obesity Qualified Code(s): O99.213 - Obesity complicating , third trimester COMMENT: BMI 34 nl HgA1C encouraged healthy weight gain (4) Supervision of high-risk : QUALIFIERS: Trimester: third trimester Qualified Code(s): O09.93 - Supervision of high risk , unspecified, third trimester COMMENT: PRR, , KISHORE 11/06/24, surprise Ovi (5) : QUALIFIERS: Weeks of gestation: 37 weeks Qualified Code(s): Z3A.37 - 37 weeks gestation of COMMENT: LR NIPT. Carrier testing neg. , Declines AFP. nl anatomy (6) Vaginal delivery: COMMENT: SM IOL preeclampsia boy Jaxson 37 Maternal Data Information KISHORE Calculator Estimated Delivery Date Method Current WG Current Estimate 11/06/24 LMP (Certain) 37w 3d Vaginal Delivery Maternal Presentation Maternal Presentation: see assessment and plan Vaginal Delivery Information Procedure Performed: Spontaneous Vaginal Delivery Surgeon/Practitioner: Jody Hauser Pre-Procedure Diagnosis: see assessment and plan Post-Procedure Diagnosis: same Type of anesthesia: Epidural Estimated Blood Loss: 700 Findings Description of procedure: Patient began pushing and delivered the head in the LEIGHTON presentation. The head was delivered atraumatically and a loose nuchal cord x 1 delivered through. The anterior and posterior shoulders delivered without complication followed by the rest of the and the was placed on the maternal abdomen. Delayed cord clamping was employed for approximately 60 seconds. Cord was clamped and cut and gentle traction was applied to the cord and the placenta delivered spontaneously immediately following it was noted to be intact with three-vessel cord. The perineum and vagina were inspected and was noted to have a second - degree laceration that was repaired in the usual fashion with 3-0 vicryl rapide . EBL was 700cc due to uterine atony and laceration, tretaed with massage and repair. Patient and infant tolerated delivery well. Presentation: Vertex Placental Delivery Description: Spontaneous Specimen collected: Yes Description of specimen(s) removed: placenta Correctional Treatment Specialist delivery driver assistant: No Post Vaginal Deli Medications given after delivery: Other (pitocin) Complication Complications: No Multi Select Codes Urinary/Genital Urinary/Genital CPT Codes: 48003 Vaginal Delivery [facility]
[2024-10-19] MEDS: Oxytocin 15 Units/NS 250ml 15 UNITS/250 ML IV.SOLN 83 UNITS IV (08:00)
--- NOTE | 2024-10-19 08:01 | PCM.DC ---
Discharge Instructions Diet Discharge Diet: No restrictions DC O2, CPAP, BIPAP needs Home O2 Discharge instructions: No Dressing / Incision Discharge Activity: Return to Normal Activity, May Not Drive (while taking narcotic pain medications.) and May Shower May resume sexual activity in: 4-6 weeks Dressing / Incision Call your doctor if your incision/area has: Continuous Slow Oozing, Sudden Increased Bleeding, Increased Pain/ Swelling, Increased Redness and Foul Smelling Discharge Follow Up Care Please Follow Up With: Jody Hauser MD When: Call [phone] to make an appointment with your doctor in 6 weeks. If you had elevated blood pressure or 4th degree laceration, you will need to be seen in 2 weeks. Test Results: Test results from this visit will be discussed in further detail at your follow-up appointment, if applicable. Discharge Plan Admission Admit Date/Time: 10/17/24 16:35 Attending Provider: Jody Hauser Primary Care Provider: Care Physician,Candida Primary Discharge Orders/Prescriptions Prescriptions: No Action PNV-[place] 28-1-300 mg capsule 1 cap PO DAILY Referrals / Follow Up: Care Physician,No Primary [Primary Care Provider] - Disposition Disposition (needs filled in before D/C Order can be placed): Home, Self Care
[2024-10-19 08:24] LABS: Hematocrit 32.9 % (37-47); Hemoglobin 11.1 g/dL (12.0-15.0); Mean Corp Hgb Conc 33.7 g/dL (32-36); Mean Corpuscular Hgb 29.1 pg (27.0-32.0); Mean Corpuscular Volume 86.4 fL (81-99); Mean Platelet Vol. 10.4 fl (6.2-12.0); Platelet Count 228 K/mm3 (150-450); RBC Distribution Width CV 13.7 % (11.6-14.6); RBC Distribution Width SD 42.4 fl (35.1-43.9); Red Blood Count 3.81 M/mm3 (4.2-5.4); White Blood Count 21.2 K/mm3 (4.4-11.0)
[2024-10-19 08:49] LABS: ALB/GLOB Ratio 0.5 RATIO (0.9-2.4); AST(SGOT) 24 U/L (15-37); Alanine Aminotransfer ALT/SGPT 22 U/L (13-56); Alkaline Phosphatase 139 U/L (45-117); Anion Gap 14 (5-15); BUN 14 mg/dL (7-18); BUN/Creat Ratio 14.7 RATIO (10-20); Calcium,Total 7.7 mg/dL (8.5-10.1); Chloride 102 mmol/L (98-107); Creatinine, Serum 0.96 mg/dL (0.55-1.02); EST Glomerular Filtration Rate 74 mL/min (>60); Est Glom Filt Rate - Afr Amer 90 mL/min (>60); Estimated Creatinine Clearance 99.51 ml/min; Globulin 3.7 g/dL (2.2-4.2); Glucose 142 mg/dL (74-106); Potassium 3.8 mmol/L (3.5-5.1); Protein, Total 5.7 g/dL (6.4-8.2); Sodium Level 132 mmol/L (136-145)
[2024-10-19] MEDS: Acetaminophen 500 MG Tablet 1000 MG PO (11:06)
[2024-10-19] MEDS: Cefazolin 2 GM in Syringe IV (13:01)
[2024-10-19] MEDS: Senna/Docusate Sodium 1 Tablet PO (13:34)
[2024-10-19] MEDS: Benzocaine/Lanolin/Aloe Vera 85 GM Spray 1 SPRAY TOPICAL (13:34)
[2024-10-19] MEDS: Lactated Ringers 1,000 ML 30 ML IV (14:12)
--- NOTE | 2024-10-19 16:00 | NURSING ---
Phone call placed to Dr. Hauser to let know pt informed RN at she was having blurred vision on and off throughout the day. Pt still has low grade temp. Plan is to continue monitoring and call if fever gets >102 degrees. RN informed MD about brisk reflexes, no headache and no clonus. Pt urine output is increasing as well.
[2024-10-19] MEDS: Naproxen 500 MG Tablet PO (18:27)
[2024-10-19] MEDS: Ampicillin 2 GM in 0.9% Normal Saline (100mL MB+) 100 ML IV (19:02)
[2024-10-19 19:34] LABS: Color, Urine Yellow (Yellow); Glucose, Dipstick Normal (Normal); Ketone-Dipstick Negative (Negative); Leukocyte Esterase-Dipstick Negative /ul (Negative); Nitrite-Dipstick Negative (Negative); Occult Blood-Urine 50 /ul (Negative); Protein-Dipstick Negative (Negative); Specific Gravity, Urine 1.025 (1.002-1.030); Urine Bilirubin Dipstick Negative (Negative); Urine Clarity Clear (Clear); Urine Urobilinogen Normal (Normal)
[2024-10-19] MEDS: Gentamicin IV 250 MG in Dextrose 5%-Water (50mL Bag) 50 ML 100 MG IVPB (19:38)
[2024-10-19] MEDS: Ampicillin 1,000 MG in 0.9% Normal Saline (50mL MB+) 50 ML 200 MG IV (23:20)
[2024-10-20] VITALS (18 sets, daily range): BP systolic 108–150; BP diastolic 54–83; PULSE 71–97; RESP 16–18; TEMP 36.4–37.1; O2SAT 95–100
[2024-10-20] MEDS: Ampicillin 1,000 MG in 0.9% Normal Saline (50mL MB+) 50 ML 200 MG IV ×4 (03:09→15:37)
[2024-10-20] MEDS: 0.9% Saline Lock 10 ML Syringe IV ×4 (03:15→15:38)
[2024-10-20 03:55] LABS: Hematocrit 37.4 % (37-47); Hemoglobin 12.7 g/dL (12.0-15.0); Mean Corpuscular Hgb 29.3 pg (27.0-32.0); Mean Corpuscular Volume 86.2 fL (81-99); Mean Platelet Vol. 10.1 fl (6.2-12.0); Platelet Count 159 K/mm3 (150-450); RBC Distribution Width CV 14.1 % (11.6-14.6); Red Blood Count 4.34 M/mm3 (4.2-5.4); White Blood Count 11.3 K/mm3 (4.4-11.0)
[2024-10-20 04:13] LABS: ALB/GLOB Ratio 0.6 RATIO (0.9-2.4); AST(SGOT) 21 U/L (15-37); Alanine Aminotransfer ALT/SGPT 18 U/L (13-56); Alkaline Phosphatase 112 U/L (45-117); Anion Gap 7 (5-15); BUN 12 mg/dL (7-18); BUN/Creat Ratio 15.7 RATIO (10-20); Calcium,Total 7.1 mg/dL (8.5-10.1); Chloride 106 mmol/L (98-107); Creatinine, Serum 0.76 mg/dL (0.55-1.02); EST Glomerular Filtration Rate 97 mL/min (>60); Est Glom Filt Rate - Afr Amer 117 mL/min (>60); Globulin 3.2 g/dL (2.2-4.2); Glucose 104 mg/dL (74-106); Potassium 3.5 mmol/L (3.5-5.1); Protein, Total 5.2 g/dL (6.4-8.2); Sodium Level 138 mmol/L (136-145)
--- NOTE | 2024-10-20 06:42 | PN.OBGYN_ITS ---
Subjective Subjective Patient doing well now, improving. no MARIN. had some BV yesterday. Tolerating PO. Ambulating with some dizziness overnight- will see ohw she is tod yotigre magnesium . infant feeding well. Denies chest pain, shortness of breath, calf pain/swelling, fevers since starting dual antibiotics, chills. Objective Data Objective Data Vital Signs: Vital Signs Temp Pulse Resp BP Pulse Ox O2 Del Method 97.5 F L 93 16 112/55 L 98 Room Air 10/20/24 06:40 10/20/24 06:40 10/20/24 06:40 10/20/24 06:40 10/20/24 06:40 10/20/24 06:40 Oxygen Delivery Method Room Air Weight: 229 lb Body Mass Index (BMI) 41.8 Intake & Output: Intake and Output for Last 24 Hours 10/18/24 10/19/24 10/20/24 23:59 23:59 23:59 Intake Total 3088.10 / 3088.10 3944.66 / 3994.66 727.34 / 727.34 Output Total 625 / 625 4090 / 4090 350 / 350 Balance 2463.10 / 2463.10 -145.34 / -95.34 377.34 / 377.34 Lab / Micro Data 10/20/24 03:40 10/20/24 03:40 Labs: Laboratory Results - last 24 hr 10/19/24 08:13: WBC 21.2 H, RBC 3.81 L, Hgb 11.1 L, Hct 32.9 L, MCV 86.4, MCH 29.1, MCHC 33.7, RDW Std Deviation 42.4, RDW Coeff of Hima 13.7, Plt Count 228, MPV 10.4, Sodium 132 L, Potassium 3.8, Chloride 102, Carbon Dioxide 16.0 L, Anion Gap 14, BUN 14, Creatinine 0.96, Estim Creat Clear Calc 99.51, Est GFR (MDRD) Af Amer 90, Est GFR (MDRD) Non-Af 74, BUN/Creatinine Ratio 14.7, Glucose 142 H, Calcium 7.7 L, Total Bilirubin 0.60, AST 24, ALT 22, Alkaline Phosphatase 139 H, Total Protein 5.7 L, Albumin 2.0 L, Globulin 3.7, Albumin/Globulin Ratio 0.5 L 10/19/24 19:10: Urine Color Yellow, Urine Clarity Clear, Urine pH 5.0, Ur Specific [place] 1.025, Urine Protein Negative, Urine Glucose (UA) Normal, Urine Ketones Negative, Urine Occult Blood 50 H, Urine Nitrite Negative, Urine Bilirubin Negative, Urine Urobilinogen Normal, Ur Leukocyte Esterase Negative 10/20/24 03:40: WBC 11.3 H, RBC 4.34, Hgb 12.7, Hct 37.4, MCV 86.2, MCH 29.3, MCHC 34.0, RDW Std Deviation 44.0 H, RDW Coeff of Hima 14.1, Plt Count 159, MPV 10.1, Sodium 138, Potassium 3.5, Chloride 106, Carbon Dioxide 25.0, Anion Gap 7, BUN 12, Creatinine 0.76, Estim Creat Clear Calc 125.70, Est GFR (MDRD) Af Amer 117, Est GFR (MDRD) Non-Af 97, BUN/Creatinine Ratio 15.7, Glucose 104, Calcium 7.1 L, Total Bilirubin 0.30, AST 21, ALT 18, Alkaline Phosphatase 112, Total Protein 5.2 L, Albumin 2.0 L, Globulin 3.2, Albumin/Globulin Ratio 0.6 L ROS Constitutional Constitutional: Reports systems reviewed and no addt'l complaints, except as documented Cardiovascular Cardiovascular: Reports systems reviewed and no addt'l complaints, except as documented Respiratory/Chest Respiratory/Chest: Reports systems reviewed and no addt'l complaints, except as documented Gastrointestinal Gastrointestinal: Reports systems reviewed and no addt'l complaints, except as documented Physical Exam Const alert, oriented x3 and no apparent distress HEENT Head and Scalp: atraumatic Resp normal respiratory effort GI soft to palpation and non-tender Bimanual Exam - Vag & Uterus: uterus non-tender Uterus Palpation: uterus fundus firm (below Umbilicus) Assessment & Plan (1) Vaginal delivery: COMMENT: SM IOL preeclampsia boy Jaxson 37 (2) Pre-eclampsia during in third trimester, antepartum: COMMENT: s/p 24 hour magnesium, no baseline meds at present (3) Abnormal glucose affecting : COMMENT: 3 HR GTT - passed 1 value abnormal, healthy diet (4) Obesity affecting : QUALIFIERS: Trimester: third trimester Obesity type affecting : unspecified obesity Qualified Code(s): O99.213 - Obesity complicating , third trimester COMMENT: BMI 34 nl HgA1C encouraged healthy weight gain (5) Supervision of high-risk : QUALIFIERS: Trimester: third trimester Qualified Code(s): O09.93 - Supervision of high risk , unspecified, third trimester COMMENT: PRR, , KISHORE 11/06/24, surprise Ovi (6) : QUALIFIERS: Weeks of gestation: 37 weeks Qualified Code(s): Z 3A.37 - 37 weeks gestation of COMMENT: LR NIPT. Carrier testing neg. , Declines AFP. nl anatomy (7) Maternal fever during labor, delivered: COMMENT: amp and gent given x 24 hours, now afebrile. PLAN: Plan s/p PPD # 1 1. routine post delivery care 2. breast feeding- support given 3. rh positive 4. rubella immune monitor temps, 24 hour antibiotics monitor bps off mag, repeat labs this am, start meds if elevated
[2024-10-20] MEDS: Acetaminophen 500 MG Tablet 1000 MG PO (08:59)
[2024-10-20] MEDS: Naproxen 500 MG Tablet PO (08:59)
[2024-10-20] MEDS: Senna/Docusate Sodium 1 Tablet PO (17:48)
[2024-10-21 04:42] VITALS: BP 132/70; PULSE 88; RESP 16; TEMP 36.9
[2024-10-21 08:38] VITALS: BP 138/98; PULSE 96; RESP 16; TEMP 36.7; O2SAT 99
--- NOTE | 2024-10-21 08:40 | PCM.PN.CNM ---
Subjective Subjective Patient doing well without complaints. Tolerating PO. Ambulating and voiding without difficulty. Feeding well. Denies chest pain, shortness of breath, calf pain/swelling, fevers, chills, lightheadedness. denies headaches, visual changes, ruq pain. Objective Data Objective Data BP 130-140s/70-80s, x1 150s. Vital Signs: Vital Signs Temp Pulse Resp BP Pulse Ox O2 Del Method 98.4 F 88 16 132/70 H 99 Room Air 10/21/24 04:42 10/21/24 04:42 10/21/24 04:42 10/21/24 04:42 10/20/24 20:00 10/21/24 04:42 Oxygen Delivery Method Room Air Weight: 229 lb Body Mass Index (BMI) 41.8 Intake & Output: Intake and Output for Last 24 Hours 10/19/24 10/20/24 10/21/24 23:59 23:59 23:59 Intake Total 3944.66 / 3994.66 877.34 / 877.34 Output Total 4090 / 4090 550 / 550 Balance -145.34 / -95.34 327.34 / 327.34 Lab / Micro Data Attestation: I reviewed the patient's lab results. 10/20/24 03:40 10/20/24 03:40 Micro: Microbiology 10/19/24 19:10 Urine Catheter - Gonzalez Urine Culture - Preliminary Culture exhibits no growth. 10/17/24 Unknown Genital vaginal Group B Streptococcus Culture - Final Group B Beta Streptococcus is not isolated. Physical Exam Const alert, oriented x3 and no apparent distress HEENT Head and Scalp: atraumatic Resp normal respiratory effort GI soft to palpation and non-tender Bimanual Exam - Vag & Uterus: uterus non-tender Uterus Palpation: uterus fundus firm (below Umbilicus) Assessment & Plan (1) Vaginal delivery: COMMENT: SM IOL preeclampsia boy Jaxson 37 (2) Pre-eclampsia during in third trimester, antepartum: COMMENT: s/p 24 hour magnesium, no baseline meds at present. stable labs PLAN: Plan s/p PPD # 2 1. routine post delivery care 2. breast feeding- support given 3. rh positive 4. rubella immune 5. if bp stable today, plan d/c home this evening with BP monitoring.
[2024-10-21 08:44] VITALS: BP 133/85
--- NOTE | 2024-10-21 08:44 | DS.PCM_ITS ---
Providers Date of Admission: 10/17/24 Primary Care Physician: No Primary Care Phys Reason For Visit: VAGINAL DELIVERY Diagnosis Discharge Diagnosis (1) Vaginal delivery: Status: Acute Code(s): O80 - Encounter for full-term uncomplicated delivery (2) Pre-eclampsia during in third trimester, antepartum: Status: Acute Code(s): O14.93 - Unspecified pre-eclampsia, third trimester Plan s/p PPD # 2 1. routine post delivery care 2. breast feeding- support given 3. rh positive 4. rubella immune 5. if bp stable today, plan d/c home this evening with BP monitoring. Medications at Discharge Home Medications multivit-min no.71-iron fum 28 mg-folate no.1 1 mg-dha 300 mg capsule (PNV- [place]) 1 cap PO DAILY pnv 03/18/24 Hospital Course Operations None Procedures None Summary of Care Provided Hospital Course: IOL for PEC, s/p magnesium and . stable pp course without need for antihypertensives. Physical Exam Const alert, oriented x3 and no apparent distress HEENT Head and Scalp: atraumatic Resp normal respiratory effort GI soft to palpation and non-tender Bimanual Exam - Vag & Uterus: uterus non-tender Uterus Palpation: uterus fundus firm (below Umbilicus) Weight / BMI Weight Weight: 229 lb Body Mass Index (BMI) 41.8 ABG / Lab / Microbiology Data 10/20/24 03:40 10/20/24 03:40 Microbiology: Microbiology 10/19/24 19:10 Urine Catheter - Gonzalez Urine Culture - Preliminary Culture exhibits no growth. 10/17/24 Unknown Genital vaginal Group B Streptococcus Culture - Final Group B Beta Streptococcus is not isolated. D/C Instructions Discharge Diet: No restrictions May resume sexual activity in: 4-6 weeks Call your doctor if your incision/area has: Continuous Slow Oozing, Sudden Increased Bleeding, Increased Pain/ Swelling, Increased Redness and Foul Smelling Discharge DC O2, CPAP, BIPAP Needs Home O2 Discharge instructions: No Please Follow Up With: Jody Hauser MD When: Call [phone] to make an appointment with your doctor in 6 weeks. If you had elevated blood pressure or 4th degree laceration, you will need to be seen in 2 weeks. Meaningful Use Info Meaningful Use Meaningful Use Diagnoses (Choose all that apply): None applicable Ischemic Stroke Statin Dosing Therapy Reference: STATIN DOSE THERAPY REFERENCE: * Patients > 75 years receive moderate or high dose statin therapy. * Patients 75 years or YOUNGER should receive HIGH intensity statin dose unless contraindicated. You will be required to document reason for non-treatment if statin daily dose does not meet guidelines. HIGH DOSE STATIN THERAPY DAILY Atorvastatin > than or = to 40 mg Rosuvastatin > than or = to 20 mg Amlodipine + Atorvastatin > than or = to 2.5/40 mg Ezetimibe + Simvastatin 10/80 mg Simvastatin 80mg Discharge Plan Admission Admit Date/Time: 10/17/24 16:35 Attending Provider: Jody Hauser Primary Care Provider: Care Physician,No Primary Discharge Orders/Prescriptions Prescriptions: No Action PNV-[place] 28-1-300 mg capsule 1 cap PO DAILY Referrals / Follow Up: Care Physician,No Primary [Primary Care Provider] - Disposition Disposition (needs filled in before D/C Order can be placed): Home, Self Care
[2024-10-21 13:45] VITALS: BP 142/87; PULSE 96; RESP 16; TEMP 36.8; O2SAT 98
--- NOTE | 2024-10-21 14:08 | RAD.NOTE ---
Called Yulissa Frausto CNM and updated on last BP taken of 142/87. CNM was notified of BP from 0800. Pt purchased a BP cuff from pharmacy to use at home. CNM states that pt is ok to go home but to report BP of >150/90 to provider. If any are over 160/110 to come to the hospital for treatment. Pt to call office to schedule a follow up appt for 1 week for a BP check with the nurse.
== END 2024-10-21 16:20 | disposition home or self-care (01) | DRG 807 ==
LOC: WPOUT 16:42 → WP 16:42
PROVIDERS: Registered Nurse; Admitting Provider Obstetrics & Gynecology; Referring Provider Obstetrics & Gynecology; Visit Provider Obstetrics & Gynecology
DX: O14.94 Unspecified pre-eclampsia, complicating childbirth (principal); Z37.0 Single live birth; O99.814 Abnormal glucose complicating childbirth; O69.81X0 Labor and delivery complicated by cord around neck, without compression, not applicable or unspecified; O99.214 Obesity complicating childbirth; O70.1 Second degree perineal laceration during delivery; Z3A.37 37 weeks gestation of pregnancy
CPT/HCPCS: 59025; 59050; 80053; 81002; 82565; 82570; 84156; 84450; 84460; 84550; 85027; 86780; 86850; 86900; 86901; 87081; 87086; 99221; A4216; G0378; J0290; J2405

== ENCOUNTER → 2024-12-02 | Outpatient (CLI) | payer BC, SELFPAY ==
[2024-12-05 15:09] LABS: HPV Reflexed? NOT INDICATED
== END | disposition home or self-care (01) ==
LOC: LABSPEC 11:57
PROVIDERS: Referring Provider Nurse Practitioner Women's Health; Visit Provider Nurse Practitioner Women's Health
DX: Z12.4 Encounter for screening for malignant neoplasm of cervix (principal)
CPT/HCPCS: 88175; G0145